=== PATIENT | female | born 1950 | race Caucasian/White ===

== ENCOUNTER 2021-10-08 14:56 | Emergency (ER) | payer OTHER ==
[~2021-10-08] VITALS: Ht 160 cm; Wt 71.2 kg
[2021-10-08 16:31] VITALS: BP_SYST 234
--- NOTE | 2021-10-08 16:45 | NUR ---
Placed in room 03 . Placed on monitoring engineer, blood pressure machine and pulse oximeter. To gown for exam. Side rails up. ]=
--- NOTE | 2021-10-08 16:47 | NUR ---
patient brought in complaining of headache with numbness and tingling bilaterally Upper Extremities since yesterday with history htn. BP is 234/94. Denies any dizziness, nausea or blurred vision. aox 4 from home. no acute distress noted.
--- NOTE | 2021-10-08 18:05 | NUR ---
ER Dr.DELA MEZA at bedside examining patient.
[2021-10-08] MEDS ORDERED: KETOROLAC TROMETHAMINE 15 MG VIAL IVP ONE (18:15)
[2021-10-08] MEDS ORDERED: DIPHENHYDRAMINE INJ 50 MG/ML VIAL IVP ONE (18:15)
[2021-10-08] MEDS ORDERED: METOCLOPRAMIDE HCL 10 MG/2 ML VIAL IVP ONE (18:15)
[2021-10-08] MEDS ORDERED: NACL 0.9% 1,000 ML IV ONE (18:15)
[2021-10-08 19:40] VITALS: BP_SYST 168
--- NOTE | 2021-10-08 19:40 | NUR ---
Patient given written and verbal discharge instructions and verbalizes understanding. ER MD discussed with patient the results and treatment provided. Patient in stable condition. ID arm band removed. IV catheter removed intact and dressing applied, no active bleeding. NO RX given. Patient educated on pain management and to follow up with PMD. Pain Scale 0/10 Opportunity for questions provided and answered.
== END 2021-10-08 19:40 | disposition home or self-care (01) ==
LOC: SED 14:56
DX: G43.909 Migraine, unspecified, not intractable, without status migrainosus (principal); I10 Essential (primary) hypertension; Z88.2 Allergy status to sulfonamides
CPT/HCPCS: 70450; 76376; 93005; 96361; 96374; 96375; 99284; J1200; J1885; J2765; J7030